=== PATIENT | male | born 1960 | race Two or more races ===

== ENCOUNTER 2021-07-13 23:36 | Inpatient (IN) | payer OTHER ==
[2021-07-14 00:11] VITALS: BMI 31.9
[2021-07-14 01:40] LABS: BASO % 0.5 % (0-2.0); EOS % 1.9 % (0-4.5); HEMATOCRIT 39.3 % (35.4-49); MCH 26.9 pg (25.7-33.7); MCHC 33.2 g/dl (32.0-35.9); MEAN CELL VOLUME 80.9 fl (80-96); MEAN PLT VOLUME 9.3 fl (7.5-11.1); NEUT % 53.6 % (42.8-82.8); PLATELET COUNT 96 10^3/uL (134-434); RBC 4.85 M/mm3 (4.00-5.60); RDW 15.6 % (11.9-15.9); WHITE BLOOD COUNT 8.1 K/mm3 (4.0-10.0)
[2021-07-14] MEDS ORDERED: MAGNESIUM SULF 50% (8.12 MEQ/2 ML-1 GM VIAL) IVPB ONE (01:49)
[2021-07-14 01:55] LABS: CHLORIDE 106 mmol/L (98-107); INR 0.99 (0.83-1.09); PROTHROMBIN TIME (PATIENT) 11.4 SEC (9.7-13.0); SODIUM 139 mmol/L (136-145)
[2021-07-14 01:58] LABS: ACTIVATED PTT 18.5 SECONDS (25.2-36.5); ALBUMIN 3.8 g/dl (3.4-5.0); ANION GAP 10 MMOL/L (8-16); CALCIUM 9.3 mg/dL (8.5-10.1); CO2 23 mmol/L (21-32)
[2021-07-14 01:59] LABS: BLOOD UREA NITROGEN 26.5 mg/dL (7-18); GLUCOSE,RANDOM 83 mg/dL (74-106)
[2021-07-14 02:01] LABS: CREATININE 1.2 mg/dL (0.55-1.3); SGOT/AST 28 U/L (15-37); SGPT/ALT 32 U/L (13-61)
[2021-07-14 02:02] LABS: CHOLESTEROL 125 mg/dL (50-200); LDL CHOLESTEROL (ONLY SJRH) 63 mg/dL (5-100); TRIGLYCERIDES 202 mg/dL (0-150)
[2021-07-14 02:03] LABS: BILIRUBIN,TOTAL 0.2 mg/dL (0.2-1); TOT PROT 7.7 g/dl (6.4-8.2)
[2021-07-14 02:04] LABS: ALK PHOS 104 U/L (45-117); HDL CHOLESTEROL 37 mg/dL (40-60)
[2021-07-14] MEDS ORDERED: ASPIRIN 81 MG CHEWABLE TABLETS PO ONE (02:50)
[2021-07-14 02:51] LABS: URINE APPEARANCE CLEAR; URINE BILIRUBIN NEGATIVE (NEGATIVE); URINE COLOR YELLOW; URINE GLUCOSE (UA) NEGATIVE (NEGATIVE); URINE KETONE TRACE (NEGATIVE); URINE LEUK ESTERASE NEGATIVE (NEGATIVE); URINE NITRITE NEGATIVE (NEGATIVE); URINE PROTEIN NEGATIVE (NEGATIVE)
[2021-07-14] MEDS ORDERED: ASPIRIN 81 MG CHEWABLE TABLETS ONE (03:10)
[2021-07-14 03:51] LABS: METHADONE, UR NEGATIVE (NEGATIVE); PHENCYCLIDINE,URINE NEGATIVE (NEGATIVE); URINE AMPHETAMINES NEGATIVE (NEGATIVE); URINE BENZODIAZEPINES NEGATIVE (NEGATIVE)
[2021-07-14 03:52] LABS: OPIATES, URI NEGATIVE (NEGATIVE); URINE BARBITURATES NEGATIVE (NEGATIVE)
[2021-07-14 04:04] LABS: COCAINE, UR POSITIVE (NEGATIVE)
[2021-07-14] MEDS ORDERED: LORazepam 1 MG TABLET PO PRN (06:05)
[2021-07-14 06:53] VITALS: TEMP 97.1
[2021-07-14] MEDS ORDERED: ATORVASTATIN CA 80 MG TABLET (FP) PO SCH ×2 (06:57→22:00)
[2021-07-14] MEDS ORDERED: INSULIN SLIDING SCALE (NOVOLOG) 1 VIAL SQ SCH (07:00)
[2021-07-14 07:46] VITALS: BP 148/89; PULSE 73
[2021-07-14 07:55] LABS: BASO % 0.7 % (0-2.0); EOS % 2.3 % (0-4.5); HEMATOCRIT 38.9 % (35.4-49); HEMOGLOBIN 12.7 GM/dL (11.7-16.9); LYMPH % 43.4 % (8-40); MCH 26.6 pg (25.7-33.7); MCHC 32.7 g/dl (32.0-35.9); MEAN CELL VOLUME 81.4 fl (80-96); MEAN PLT VOLUME 9.1 fl (7.5-11.1); MONO % 6.3 % (3.8-10.2); NEUT % 47.3 % (42.8-82.8); PLATELET COUNT 267 10^3/uL (134-434); RBC 4.78 M/mm3 (4.00-5.60); RDW 14.8 % (11.9-15.9); WHITE BLOOD COUNT 6.7 K/mm3 (4.0-10.0)
[2021-07-14 08:21] LABS: CALCIUM 8.7 mg/dL (8.5-10.1)
[2021-07-14 08:22] LABS: ALBUMIN 3.1 g/dl (3.4-5.0); BLOOD UREA NITROGEN 25.8 mg/dL (7-18); MAGNESIUM 2.5 mg/dL (1.8-2.4)
[2021-07-14 08:25] LABS: CREATININE 1.2 mg/dL (0.55-1.3); PHOSPHOROUS 3.6 mg/dL (2.5-4.9)
[2021-07-14 08:26] LABS: BILIRUBIN,TOTAL 0.2 mg/dL (0.2-1); TOT PROT 6.4 g/dl (6.4-8.2)
[2021-07-14] MEDS ORDERED: ASPIRIN 81 MG CHEWABLE TABLETS PO SCH (10:00)
[2021-07-14] MEDS ORDERED: HYDROCHLOROTHIAZIDE 25 MG TABLET (FP) PO SCH (10:00)
[2021-07-14] MEDS ORDERED: NIFEdipine E.R. 30 MG TABLET PO SCH (10:00)
[2021-07-14] MEDS ORDERED: LOSARTAN POTASSIUM 50 MG TABLET PO SCH (10:00)
[2021-07-14] MEDS ORDERED: NICOTINE 21 MG/24 HOURS TOPICAL PATCH TD SCH (10:00)
[2021-07-14] MEDS ORDERED: THIAMINE HCL 100 MG TABLET (FP) PO SCH (10:00)
[2021-07-14] MEDS ORDERED: FOLIC ACID 1 MG TABLET (FP) PO SCH (10:00)
[2021-07-14] MEDS ORDERED: COLCHICINE 0.6 MG CAP PO SCH (10:00)
[2021-07-14] MEDS ORDERED: LORazepam 1 MG TABLET PO SCH (11:00)
[2021-07-14] MEDS ORDERED: traZODone HCL 50 MG TABLET (FP) PO SCH (22:00)
[2021-07-16] MEDS ORDERED: LORazepam 1 MG TABLET PO SCH (05:00)
[2021-07-17] MEDS ORDERED: LORazepam 0.5 MG TABLET PO PRN
[2021-07-17] MEDS ORDERED: LORazepam 0.5 MG TABLET PO SCH (05:00)
[2021-07-18] MEDS ORDERED: LORazepam 0.5 MG TABLET PO ONE (05:00)
== END 2021-07-14 07:55 | disposition short-term general hospital (02) | DRG 45 ==
LOC: JER 23:36 → JERBED 07-14 03:18
PROVIDERS: ADMIT Internal Medicine; ATTEND Internal Medicine
DX: I63.89 Other cerebral infarction (principal); I10 Essential (primary) hypertension; I69.354 Hemiplegia and hemiparesis following cerebral infarction affecting left non-dominant side; R29.707 NIHSS score 7; E11.9 Type 2 diabetes mellitus without complications; F32.A Depression, unspecified; F41.9 Anxiety disorder, unspecified; E66.9 Obesity, unspecified; Z68.31 Body mass index [BMI] 31.0-31.9, adult; M54.41 Lumbago with sciatica, right side; R47.81 Slurred speech; E78.5 Hyperlipidemia, unspecified; F19.90 Other psychoactive substance use, unspecified, uncomplicated
CPT/HCPCS: 36415; 70450-TC; 70496-TC; 80053; 80061; 80307; 81003; 82550; 82553; 82962; 83036; 83735; 84100; 84443; 84484; 85025; 85610; 85730; 86140; 86850; 86900; 86901; 93005; 93010; 93971; 93971-TC; 99285-25; C9803; U0003; U0005